=== PATIENT | male | born 2000 | race American Indian/Alaskan Native ===

== ENCOUNTER 2024-02-24 05:45 | Observation (INO) ==
[2024-02-24] MEDS ORDERED: IOPAMIDOL 100 ML BOTTLE IV ONE (05:46)
[2024-02-24] MEDS: 0.9 % SODIUM CHLORIDE 1,000 ML IV ONE (06:05)
[2024-02-24] MEDS: PROCHLORPERAZINE 10 MG/2 ML VIAL IV ONE ×2 (06:05→13:16)
[2024-02-24] MEDS: KETOROLAC 30 MG/ML VIAL IV ONE (06:26)
[2024-02-24 06:27] LABS: Basophils # (Auto) 0.02 K/mcL (0.00-0.30); Basophils % (Auto) 0.2 % (0.0-2.0); Eosinophils # (Auto) 0.08 K/mcL (0.00-0.70); Eosinophils % (Auto) 0.6 % (0.0-7.0); Hematocrit 44.1 % (40.1-51.0); Hemoglobin 14.8 g/dL (13.7-17.5); Lymphocytes # (Auto) 1.93 K/mcL (1.50-4.80); Lymphocytes % (Auto) 14.9 % (15.5-49.0); Mean Cell Volume 86.6 fL (80.0-100.0); Mean Corpuscular HGB Conc 33.6 g/dL (31.0-36.0); Mean Platelet Volume 8.7 fL (8.8-12.5); Monocytes # (Auto) 0.59 K/mcL (0.10-0.90); Monocytes % (Auto) 4.5 % (1.0-12.0); Neutrophils % (Auto) 79.6 % (38.0-78.0); Platelet Count 259 K/mcL (140-440); RBC 5.09 M/mcL (4.63-6.08)
[2024-02-24 06:35] LABS: ALT/SGPT 18 U/L (<40); AST/SGOT 27 U/L (<40); Albumin 4.8 gm/dL (3.2-5.2); Albumin/Globulin Ratio 1.6 (1.0-2.3); Alkaline Phosphatase 75 U/L (39-117); Amylase 55 U/L (28-100); Bilirubin,Total 0.5 mg/dL (0.1-1.0); Blood Urea Nitrogen 11 mg/dL (6-20); Calcium 9.9 mg/dL (8.6-10.4); Carbon Dioxide 25 mmol/L (22-30); Chloride 103 mmol/L (96-108); Glomerular Filtration Rate 121; Glucose 118 mg/dL (70-105)
[2024-02-24] MEDS ORDERED: METOCLOPRAMIDE 10 MG/2 ML VIAL IV PRN (07:52)
[2024-02-24] MEDS ORDERED: morphine 4 MG/ML VIAL IV PRN (07:52)
[2024-02-24] MEDS: LACTATED RINGERS 1,000 ML IV SCH ×2 (08:43→13:17)
[2024-02-24] MEDS: DOCUSATE SODIUM 100 MG CAPSULE PO SCH (09:11)
[2024-02-24] MEDS: PIPERACILLIN SODIUM/TAZOBACTAM 3.375 GM in DEXTROSE 5% IN WATER 50 ML IV SCH ×2 (09:41→10:29)
[2024-02-24 10:02] LABS: Appearance,Urine Clear (Clear); Bilirubin,Urine Negative (Negative); Color,Urine Yellow; Culture Indicated,Urine No; Glucose,Urine (UA) Negative (Negative); Ketones,Urine Trace mg/dL (Negative); Leukocyte Esterase,Urine Negative /uL (Negative); Nitrate,Urine Negative (Negative); PH,Urine 8.5 (5.0-9.0); Protein,Urine Negative (Negative); Specific Gravity,Urine 1.015 (1.000-1.035); Urine Blood Trace-intact ery/mcL (Negative); Urine Hyaline Cast 1 /lph (0-2); Urine RBC 0 /hpf (0-3); Urine Squamous Epithelial Cell 0 /hpf (0-4); Urine WBC 0 /hpf (0-4); Urobilinogen,Urine Normal
[2024-02-24] MEDS ORDERED: ONDANSETRON 4 MG/2 ML VIAL ONE (11:03)
[2024-02-24] MEDS ORDERED: LIDOCAINE 2% PF 5 ML VIAL ONE (11:03)
[2024-02-24] MEDS ORDERED: PROPOFOL 200 MG/20 ML VIAL IV ONE (11:03)
[2024-02-24] MEDS ORDERED: DEXAMETHASONE 10 MG/ML VIAL ONE (11:03)
[2024-02-24] MEDS ORDERED: ROCURONIUM 10 MG/ML ML IV ONE (11:03)
[2024-02-24] MEDS ORDERED: KETAMINE 50 MG/ML Syringe IV ONE (11:03)
[2024-02-24] MEDS ORDERED: MAGNESIUM SULFATE 2 GM/50 ML BAG IV ONE (11:03)
[2024-02-24] MEDS ORDERED: fentaNYL 100 MCG/2 ML VIAL ONE (11:05)
[2024-02-24] MEDS ORDERED: HYDROmorphone 1 MG/ML SYRINGE ONE (12:00)
[2024-02-24] MEDS ORDERED: NALOXONE HCL 0.4 MG/ML VIAL IV PRN (12:12)
[2024-02-24] MEDS ORDERED: diphenhydrAMINE 50 MG/ML VIAL IV PRN (12:12)
[2024-02-24] MEDS ORDERED: IPRATROPIUM/ALBUTEROL 3 ML AMPUL.NEB NEB PRN (12:12)
[2024-02-24] MEDS ORDERED: PROMETHAZINE 25 MG/ML VIAL IV PRN ×2 (12:12→13:14)
[2024-02-24] MEDS ORDERED: fentaNYL 100 MCG/2 ML VIAL IV PRN ×2 (12:12→12:31)
[2024-02-24] MEDS ORDERED: LACTATED RINGERS 250 ML IV PRN (12:12)
[2024-02-24] MEDS ORDERED: SUGAMMADEX SODIUM 200 MG/2 ML VIAL IV ONE (12:17)
[2024-02-24] MEDS: MEPERIDINE 25 MG/ML VIAL IV PRN (12:42)
[2024-02-24] MEDS: 0.9 % SODIUM CHLORIDE 10 ML SYRINGE IV SCH (14:07)
[2024-02-24] MEDS: PIPERACILLIN SODIUM/TAZOBACTAM 3.375 GM in 0.9 % SODIUM CHLORIDE 100 ML IV SCH (14:30)
[2024-02-24] MEDS: SENNOSIDES 1 TABLET PO SCH (20:08)
[2024-02-25] MEDS: oxyCODONE IR 5 MG TABLET PO PRN (04:33)
[2024-02-25 06:30] LABS: Basophils # (Auto) 0.01 K/mcL (0.00-0.30); Basophils % (Auto) 0.1 % (0.0-2.0); Eosinophils # (Auto) 0 K/mcL (0.00-0.70); Eosinophils % (Auto) 0 % (0.0-7.0); Hematocrit 42.3 % (40.1-51.0); Hemoglobin 14.4 g/dL (13.7-17.5); Lymphocytes # (Auto) 1.67 K/mcL (1.50-4.80); Lymphocytes % (Auto) 11.8 % (15.5-49.0); Mean Cell Volume 86.7 fL (80.0-100.0); Monocytes # (Auto) 0.99 K/mcL (0.10-0.90); Platelet Count 259 K/mcL (140-440); RBC 4.88 M/mcL (4.63-6.08); Red Cell Distribution Width 12.1 % (11.5-14.5); WBC 14.1 K/mcL (4.5-11.0)
== END 2024-02-25 13:40 | disposition home or self-care (01) ==
LOC: MEDSUR 05:45 → ED 05:45 → MEDSUR 08:28
PROVIDERS: ADMIT Family Medicine Adult Medicine; ATTEND Family Medicine Adult Medicine
PROC: LAPAPPY (ICD-10-PCS; 2024-02-24 11:36)